=== PATIENT | female | born 1995 | race Caucasian/White ===

== ENCOUNTER 2021-02-18 12:55 | Emergency (ER) | payer MEDICAID ==
[~2021-02-18] VITALS: Ht 165.1 cm; Wt 77.0 kg
[~2021-02-18 12:55] MED LIST: FERR325T23 PO; IBUP-779 PO; MULT-1116 PO
[2021-02-18 13:01] VITALS: BP 145/98
[2021-02-18] MEDS ORDERED: ACETAMINOPHEN 325MG TABLET PO ONE (13:30)
[2021-02-18] MEDS ORDERED: TOPUD PO (14:29)
[2021-02-18 15:04] LABS: BASOPHILS % 0.4 % (0.0-2.0); EOSINOPHILS % 1.7 % (0.0-5.0); HEMATOCRIT. 39.9 % (36.0-48.0); HEMOGLOBIN. 13.7 g/dL (12.0-16.0); LYMPHOCYTES % 44.5 % (20.0-50.0); MEAN CORPUSCULAR HEMOGLOBIN 29.6 pg (28.0-32.0); MEAN CORPUSCULAR VOLUME 86.3 fL (81.0-99.0); MEAN PLATELET VOLUME 7.7 fl (7.4-10.4); MONOCYTES % 7.4 % (2.0-8.0); PLATELET 287 x1000/uL (130-400); RED BLOOD CELL COUNT 4.62 mill/uL (4.2-5.4)
[2021-02-18 15:10] LABS: CHLORIDE 108 mEq/L (98-107)
[2021-02-18 15:14] LABS: PROTHROMBIN TIME 10.5 sec (9.6-11.0)
[2021-02-18 15:15] LABS: HCG SCREEN NEGATIVE
[2021-02-18 15:41] LABS: CLARITY URINE CLEAR (CLEAR); COLOR URINE YELLOW (YELLOW); KETONES URINE NEGATIVE (NEGATIVE); LEUKOCYTE ESTERASE URINE TRACE (NEGATIVE); NITRITE URINE NEGATIVE (NEGATIVE); OCCULT BLOOD URINE 3+ (NEGATIVE); PH URINE 7.5 (4.5-8.0); PROTEIN URINE NEGATIVE (NEGATIVE); SPECIFIC GRAVITY URINE 1.003 (1.005-1.030); UROBILINOGEN URINE 0.2 E.U./dL (0.2-1.0)
[2021-02-18] MEDS ORDERED: IOHEXOL-300 100 ML BOTTLE ONE (17:31)
== END 2021-02-18 19:16 | disposition home or self-care (01) ==
LOC: ER 12:55
DX: R10.9 Unspecified abdominal pain (principal); J45.909 Unspecified asthma, uncomplicated
CPT/HCPCS: 36415; 74177; 76705; 80053; 81003; 83690; 84703; 85025; 85610; 99285; Q9967

== ENCOUNTER 2024-05-28 10:01 | Emergency (ER) | payer SELFPAY ==
[~2024-05-28] VITALS: Ht 165.1 cm; Wt 87.0 kg
[~2024-05-28 10:01] MED LIST changes: +TOPUD PO
[2024-05-28 10:03] VITALS: O2SAT 97
[2024-05-28] MEDS ORDERED: FLUT9.9S BOTHNSTRLS (10:44)
[2024-05-28] MEDS: DEXAMETHASONE 10 MG/ML VIAL PO ONE (11:05)
[2024-05-28 11:08] VITALS: BP 144/91; PULSE 100; RESP 18; TEMP 36.55848; O2SAT 97
== END 2024-05-28 11:05 | disposition home or self-care (01) ==
LOC: ER 10:01
DX: R21 Rash and other nonspecific skin eruption (principal); J02.9 Acute pharyngitis, unspecified; J45.909 Unspecified asthma, uncomplicated; F15.10 Other stimulant abuse, uncomplicated; Z79.899 Other long term (current) drug therapy
CPT/HCPCS: 99283; J1100

== ENCOUNTER 2024-06-01 09:45 | Emergency (ER) | payer SELFPAY ==
[~2024-06-01] VITALS: Ht 165.1 cm; Wt 86.0 kg
[~2024-06-01 09:45] MED LIST changes: +FLUT9.9S BOTHNSTRLS
[2024-06-01 09:54] VITALS: O2SAT 96
[2024-06-01] MEDS ORDERED: ACET-2708 MT (10:55)
[2024-06-01] MEDS ORDERED: AMOX50SU15 MT (10:55)
[2024-06-01] MEDS: ACETAMINOPHEN 325MG TABLET PO ONE (11:21)
[2024-06-01 11:28] VITALS: BP 124/57; PULSE 89; RESP 16; TEMP 36.83628; O2SAT 99
== END 2024-06-01 11:27 | disposition home or self-care (01) ==
LOC: ER 09:57
DX: H92.01 Otalgia, right ear (principal); F15.90 Other stimulant use, unspecified, uncomplicated
CPT/HCPCS: 99283